=== PATIENT | female | born 1935 | race Caucasian/White ===

== ENCOUNTER → 2016-08-01 | Outpatient (CLI) | payer OTHER, MEDICARE ==
[~2016-08-01] MED LIST: ADULT LOW DOSE81 MG PO; ADVAIR 250-501 EACH IH; ASPIR-LOW 81 MG81 MG PO; BENICAR HCT 201 EACH PO; BENICAR20 MG PO; BIOTIN1 MG PO; CALCIUM 500 +1 EAC5 PO; EYEPROMISE PO; FLOVENT NS; FOSAMAX 70 MG T70 M1 PO; GLUCOSAMINE &1 EAC1 PO; GLUCOSAMINE &1 EACH PO; HYDROCODONE OR; LEVOTHROID 00.075 M1 PO; LEVOTHROID50 MCG PO; LIALDA1.2 GM PO; LOTEMAX3.5 GM OP; LOTEMAX5 ML OP; MULTICHEW CHEW1 EACH PO; MULTIVITAMINS PO; OMEGA-3 FISH O1 EAC3 PO; OS-CAL 500+D C1 EACH PO; PROVENTIL HFA6.7 G1 INH; RED WINE EXTRA PO; VITAMIN D32000 UNIT PO; VITAMINC500 PO
== END ==
LOC: RAD 14:00
DX: M76.02 Gluteal tendinitis, left hip (principal); M76.01 Gluteal tendinitis, right hip; M70.62 Trochanteric bursitis, left hip; M70.61 Trochanteric bursitis, right hip; Y93.89 Activity, other specified

== ENCOUNTER → 2017-02-19 | Outpatient (CLI) | payer OTHER, MEDICARE | LOC: RAD 10-31 14:20 | DX: Z12.31 Encounter for screening mammogram for malignant neoplasm of breast (principal) ==

== ENCOUNTER → 2017-02-24 | Outpatient (CLI) | payer OTHER, MEDICARE | LOC: ULTRA 13:57 | DX: N63.10 Unspecified lump in the right breast, unspecified quadrant (principal) ==

== ENCOUNTER → 2017-10-16 | Outpatient (CLI) | payer OTHER, MEDICARE | LOC: RAD 08-26 13:02 | DX: N63.10 Unspecified lump in the right breast, unspecified quadrant (principal); Z86.000 Personal history of in-situ neoplasm of breast ==

== ENCOUNTER → 2018-10-19 | Outpatient (CLI) | payer OTHER, MEDICARE | LOC: RAD 09:14 | DX: Z12.31 Encounter for screening mammogram for malignant neoplasm of breast (principal) ==

== ENCOUNTER 2019-07-16 09:28 | Emergency (ER) | payer OTHER, MEDICARE ==
[~2019-07-16] VITALS: Ht 160 cm; Wt 55.8 kg
[2019-07-16 10:53] VITALS: BP 175/71
== END 2019-07-16 10:53 | disposition home or self-care (01) ==
LOC: ER 09:28
DX: R09.89 Other specified symptoms and signs involving the circulatory and respiratory systems (principal); H57.89 Other specified disorders of eye and adnexa; J45.909 Unspecified asthma, uncomplicated; I10 Essential (primary) hypertension; M85.80 Other specified disorders of bone density and structure, unspecified site; Z20.828 Contact with and (suspected) exposure to other viral communicable diseases; Z79.82 Long term (current) use of aspirin; Z79.899 Other long term (current) drug therapy

== ENCOUNTER → 2020-03-01 | Emergency (ER) | payer OTHER, MEDICARE ==
[~2020-03-01] MED LIST changes: +NORCO 5-325 TA1 EAC2 PO; +VOLTAREN GEL 1100 G2 TOP
[2020-03-01 17:13] LABS: HEMATOCRIT 32.8 % (37.0-47.0); HEMOGLOBIN 11.2 gm/dL (12.0-15.0); MCH 33.4 pg (26.0-34.0); MCHC 34.2 g/dL (28.0-37.0); MCV 97.8 fL (80.0-100.0); RBC 3.35 mil/uL (4.20-5.00); RDW 13.2 % (10.5-14.5); WBC 7.3 thou/uL (4.0-11.0)
[2020-03-01 17:39] LABS: ANION GAP 9 mmol/L (7-16); BUN 21 mg/dL (7-18); CALCIUM 9.6 mg/dL (8.5-10.1); CHLORIDE 103 mmol/L (98-107); CO2 28 mmol/L (21-32); CREATININE 0.8 mg/dL (0.6-1.0); GLUCOSE 118 mg/dL (74-106); POTASSIUM 3.8 mmol/L (3.5-5.1); SODIUM 140 mmol/L (136-145)
[2020-03-01 17:49] LABS: TROPONIN-I <0.06 ng/mL (<0.06)
--- NOTE | 2020-03-02 07:31 | EKG ---
[facility] [address] [place] [address] ELECTROCARDIOGRAM REPORT Name: NEOPAXTONAnurag CANTRELL Room #: REG AMRTHA MLakishaR.#: [id number] Admission: 03/01/20 Attend Phys: Discharge: Date of : 39 Report #: [id number] THIS REPORT FOR: cc: Ga Valencia Theodore M. DO Santiago, Patrick MD FACC ~ <ELECTRONICALLY SIGNED> By: Elton Shirley MD, FACC 03/02/20 0731 [id number] Elton Shirley MD, FACC /EPI
== END ==
LOC: ER 15:39
PROVIDERS: Physician Assistant
DX: S20.219A Contusion of unspecified front wall of thorax, initial encounter (principal); I10 Essential (primary) hypertension; J45.909 Unspecified asthma, uncomplicated; Z79.899 Other long term (current) drug therapy; Z79.82 Long term (current) use of aspirin; V49.49XA Driver injured in collision with other motor vehicles in traffic accident, initial encounter; Y93.89 Activity, other specified; Y92.89 Other specified places as the place of occurrence of the external cause; Y99.8 Other external cause status